=== PATIENT | male | born 1985 | race African-American/Black ===

== ENCOUNTER 2016-07-24 05:22 | Emergency (ER) | payer SELFPAY ==
[2016-07-24 05:24] VITALS: BP 138/71; PULSE 107; RESP 18; TEMP 102.2; O2SAT 97
[2016-07-24] MEDS ORDERED: SODIUM CHLOR 0.9% 1000 ML INJ 1,000 ML IV ONE ×2 (06:00→07:00)
[2016-07-24] MEDS ORDERED: IBUPROFEN 600 MG TAB PO ONE (06:00)
[2016-07-24 06:01] VITALS: BP 123/62; PULSE 98; RESP 16; TEMP 102.5; O2SAT 96
--- NOTE | 2016-07-24 06:08 | PD ---
HPI Chief Complaint: Fever Time Seen by Provider: 05:39 Travel History International Travel<30 days: No Contact w/Intl Traveler<30days: No Traveled to known affect area: No History of Present Illness HPI The patient is a 30 year old male who presents to the [facility] emergency department with a history of febrile illness that began on Friday. The patient reports that he has had body aches associated with this, worse in the left side of his low back, a cough productive of brown sputum, rhinorrhea that is clear to yellow in color, and a sore throat. The patient denies having any vomiting or diarrhea. He reports that he has been able to eat well. He reports that he has however had constipation. His last bowel movement was on Friday. The patient denies having any dysuria or urinary urgency, however he does have urinary frequency. He denies having any penile discharge or scrotal pain or swelling. The patient reports that he was concerned that his fever went up to a MAXIMUM TEMPERATURE of 103.7 and was not relieved with Tylenol. The patient denies any recent neck pain, chest pain, shortness of breath, abdominal pain, vomiting, diarrhea, or neurologic symptoms. [facility] Past Medical History Narrative Medical The patient's past medical history is reportedly none. Past Surgical History Narrative Surgical The patient's past surgical history is reportedly none. Social History Alcohol Use: Yes (rare use) Tobacco Use: No Substance Use: No Allergies-Medications (Allergen,Severity, Reaction): Coded Allergies: No Known Allergies (Unverified , 07/24/16) Reported Meds & Prescriptions Reported Meds & Active Scripts Active No Active Prescriptions or Reported Medications Narrative Medication NyQuil, Tylenol, ibuprofen Review of Systems Except as stated in HPI: all other systems reviewed are Neg General / Constitutional: Positive: Fever Eyes: No: Visual changes HENT: Positive: Sore Throat, Congestion, No: Headaches Cardiovascular: No: Chest Pain or Discomfort, Dyspnea on exertion Respiratory: Positive: Cough, No: Shortness of Breath Gastrointestinal: Positive: Constipation, Changes in Bowel Habits, No: Nausea , Vomiting, Diarrhea, Abdominal Pain, Indigestion, Loss of Appetite Genitourinary: Positive: Frequency, Flank Pain (left-sided), No: Urgency, Dysuria Musculoskeletal: No: Pain Skin: No Rash Neurologic: No: Weakness Psychiatric: No: Depression Endocrine: No: Polydipsia Hematologic/Lymphatic: No: Easy Bruising Physical Exam Narrative General: The patient is a well-developed well-nourished male in no acute distress. Head and Neck exam: Head is normocephalic atraumatic. Eyes: Pupils are equal round and reactive to light. Nose: Midline septum with erythematous edematous nasal mucosa and a clear nasal discharge. Mouth: Dentition unremarkable. Moist mucus membranes. Posterior oropharynx is mildly erythematous. No tonsillar hypertrophy. Uvula midline. Airway patent. Neck: No palpable lymphadenopathy. No nuchal rigidity. No thyromegaly. Cardiovascular: Sinus tachycardia in the low 100 without murmurs, gallops, or rubs. No pulse deficit to the extremities and simultaneous auscultation and palpation of his radial artery. Lungs: Clear to auscultation bilaterally. No wheezes, rhonchi, or rales. Abdomen: Soft, without tenderness to palpation in all 4 quadrants of the abdomen. No guarding, rebound, or rigidity. Normal bowel sounds are audible. Extremities: No clubbing, cyanosis, or edema. 2+ pulses in all 4 extremities. Back: No spinous process tenderness to palpation. Left-sided CVA tenderness on palpation. Neurologic Exam: Grossly nonfocal. Skin Exam: No rash noted. Intact skin that is warm and dry. Data Data Last Documented VS Vital Signs Date Time Temp Pulse Resp B/P Pulse Ox O2 Delivery O2 Flow Rate FiO2 07/24/16 06:01 102.5 98 16 123/62 96 Room Air Orders Complete Blood Count With Diff (07/24/16 05:58) Comprehensive Metabolic Panel (07/24/16 05:58) Blood Culture (07/24/16 05:58) C-Reactive Protein (Crp) (07/24/16 05:58) Urinalysis - C+S If Indicated (07/24/16 05:58) Magnesium (Mg) (07/24/16 05:58) Influenzae A/B Antigen (07/24/16 05:58) Chest, Single Ap (07/24/16 05:58) Iv Access Insert/Monitor (07/24/16 05:58) Ecg Monitoring (07/24/16 05:58) Oximetry (07/24/16 05:58) Lactic Acid (07/24/16 05:58) Sodium Chlor 0.9% 1000 Ml Inj (Ns 1000 M (07/24/16 06:00) Ibuprofen (Motrin) (07/24/16 06:00) Oseltamivir (Tamiflu) (07/24/16 06:45) Labs Laboratory Tests Test 07/24/16 07/24/16 06:15 06:30 White Blood Count 8.1 TH/MM3 Red Blood Count 4.16 MIL/MM3 Hemoglobin 13.5 GM/DL Hematocrit 40.4 % Mean Corpuscular Volume 97.1 FL Mean Corpuscular Hemoglobin 32.4 PG Mean Corpuscular Hemoglobin 33.4 % Concent Red Cell Distribution Width 11.9 % Platelet Count 183 TH/MM3 Mean Platelet Volume 8.9 FL Neutrophils (%) (Auto) 82.9 % Lymphocytes (%) (Auto) 6.9 % Monocytes (%) (Auto) 9.1 % Eosinophils (%) (Auto) 0.7 % Basophils (%) (Auto) 0.4 % Neutrophils # (Auto) 6.7 TH/MM3 Lymphocytes # (Auto) 0.6 TH/MM3 Monocytes # (Auto) 0.7 TH/MM3 Eosinophils # (Auto) 0.1 TH/MM3 Basophils # (Auto) 0.0 TH/MM3 CBC Comment DIFF FINAL Differential Comment Sodium Level 136 MEQ/L Potassium Level 3.9 MEQ/L Chloride Level 103 MEQ/L Carbon Dioxide Level 25.6 MEQ/L Anion Gap 7 MEQ/L Blood Urea Nitrogen 11 MG/DL Creatinine 1.44 MG/DL Estimat Glomerular Filtration 57 ML/MIN Rate Random Glucose 152 MG/DL Lactic Acid Level 1.3 mmol/L Calcium Level 8.1 MG/DL Magnesium Level 1.7 MG/DL Total Bilirubin 1.2 MG/DL Aspartate Amino Transf 20 U/L (AST/SGOT) Alanine Aminotransferase 27 U/L (ALT/SGPT) Alkaline Phosphatase 58 U/L C-Reactive Protein 4.22 MG/DL Total Protein 6.9 GM/DL Albumin 3.4 GM/DL Urine Color YELLOW Urine Turbidity CLEAR Urine pH 6.5 Urine Specific [place] 1.010 Urine Protein NEG mg/dL Urine Glucose (UA) NEG mg/dL Urine Ketones NEG mg/dL Urine Occult Blood NEG Urine Nitrite NEG Urine Bilirubin NEG Urine Urobilinogen LESS THAN 2.0 MG/DL Urine Leukocyte Esterase NEG Urine RBC 2 /hpf Urine WBC 1 /hpf Urine Mucus FEW /lpf Microscopic Urinalysis Comment CULT NOT INDICATED MDM Medical Decision Making Medical Screen Exam Complete: Yes Emergency Medical Condition: Yes Medical Record Reviewed: Yes Interpretation(s) Last Impressions Chest X-Ray 07/24/16 0558 Signed Impressions: Service Date/Time: Sunday, July 24, 2016 06:26 - CONCLUSION: No acute disease. Jay Jay Roca MD Differential Diagnosis Pyelonephritis, versus influenza, versus pneumonia, versus sepsis Narrative Course During the course of the patients emergency department visit, the patients history, examination, and differential diagnosis were reviewed with the patient. The patient had IV access obtained and blood work sent for analysis. The patient was placed on a deicer element winder machine with oximetry and blood pressure monitoring. The patient was provided normal saline 1 L IV fluid bolus, Motrin 600 mg by mouth 1. The patients laboratory studies were reviewed and remarkable for being influenza A+. CBC is remarkable for white count of 8.1, hemoglobin 13.5, platelets 183 with 82.9 neutrophils. CMP is remarkable for creatinine 1.44, glucose 152, calcium 8.1, lactic acid 1.3, total bilirubin 1.2, C-reactive protein 4.22, urinalysis is unremarkable. Radiology studies were reviewed and remarkable for a chest x-ray that shows no acute abnormality. Urinalysis is pending at the conclusion of my shift. I suspect that this will be negative and that the patient's symptoms are related to influenza. The patient was given Tamiflu of any 5 mg by mouth 1. The patient was instructed on alternating Tylenol with ibuprofen as needed as written on the package for fever and body aches. The patient is instructed regarding the importance of pushing fluids. The patient was given a second liter of normal saline IV fluids in the emergency department. The patient is instructed to follow-up with a primary care physician for reexamination in one week. The patient is resting comfortably and feels better, is alert and in no distress. The patients results and examination findings were discussed with the patient. The repeat examination is unremarkable and benign. The history, exam, diagnostic testing, and current condition do not suggest any significant pathology to warrant further testing, continued ED treatment, admission, or surgical evaluation at this point. The vital signs have been stable. The patient does not have uncontrollable pain, intractable vomiting, or other significant symptoms. The patient's condition is stable and appropriate for discharge. The patient will pursue further outpatient evaluation with a primary care physician or other designated or consulting physician as indicated in the discharge instructions. The patient expressed understanding and was agreeable with this plan. Sepsis Criteria SIRS Criteria (2 or more): Temp > 100.9 or < 96.8, Heart rate over 90 Criteria Outcome: Meets SIRS criteria Diagnosis Primary Impression: Febrile illness, acute Additional Impression: Influenza A Referrals: Primary Care Physician 1 week Patient Instructions: General Instructions, H1N1 Influenza (ED) Med/Other Pt SpecificInfo: Prescription(s) given Scripts Oseltamivir (Tamiflu)75 Mg Cap75 Mg PO BID #9 CAP Ref 0 Prov:Sheyla Vela MD 07/24/16 Disposition: 01 DISCHARGE HOME Condition: Stable Sheyla Vela MD Jul 24, 2016 06:07
[2016-07-24 06:31] LABS: AUTOMATED NEUTROPHIL # 6.7 TH/MM3 (1.8-7.7); BASOPHIL % 0.4 % (0.0-2.0); EOSINOPHIL # 0.1 TH/MM3 (0-0.4); EOSINOPHIL % 0.7 % (0.0-4.0); HEMATOCRIT 40.4 % (39.0-51.0); HEMO FLAGS DIFF FINAL; LYMPH % 6.9 % (9.0-44.0); LYMPHOCYTE # 0.6 TH/MM3 (1.0-4.8); MEAN CELL VOLUME 97.1 FL (80.0-100.0); MEAN CORPUSCULAR HEMOGLOBIN 32.4 PG (27.0-34.0); MEAN CORPUSCULAR HGB CONC 33.4 % (32.0-36.0); MONO % 9.1 % (0.0-8.0); NEUT % 82.9 % (16.0-70.0); PLATELET COUNT 183 TH/MM3 (150-450); RED BLOOD COUNT 4.16 MIL/MM3 (4.50-5.90); RED CELL DISTRIBUTION WIDTH 11.9 % (11.6-17.2); WHITE BLOOD COUNT 8.1 TH/MM3 (4.0-11.0)
--- NOTE | 2016-07-24 06:41 | RADRPT ---
EXAM DATE/TIME: 07/24/2016 06:26 [place] COMPARISON: No previous studies available for comparison. INDICATIONS : Short of breath. MEDICAL HISTORY : None. SURGICAL HISTORY : None. ENCOUNTER: Initial ACUITY: 1 day PAIN SCORE: 0/10 LOCATION: Bilateral chest FINDINGS: A single view of the chest demonstrates the lungs to be symmetrically aerated without evidence of mas s, infiltrate or effusion. The cardiomediastinal contours are unremarkable. Osseous structures are intact. CONCLUSION: No acute disease. Jay Jay Roca MD on July 24, 2016 at 6:39 Board Certified Radiologist. This report was verified electronically.
[2016-07-24] MEDS ORDERED: OSELTAMIVIR PHOSPHATE 75 MG CAP PO ONE (06:45)
[2016-07-24 06:49] LABS: BLOOD, URINE NEG (NEG); GLUCOSE,URINE NEG (NEG); KETONE, URINE NEG (NEG); MUCUS URINE FEW /lpf (OCC); NITRITE,URINE NEG (NEG); PH, URINE 6.5 (5.0-8.5); URINE COLOR YELLOW (YELLW/STRAW)
[2016-07-24 06:49] LABS: ALT (GPT) 27 U/L (12-78); ANION GAP 7 MEQ/L (5-15); AST (GOT) 20 U/L (15-37); BICARBONATE 25.6 MEQ/L (21.0-32.0); BLOOD UREA NITROGEN 11 MG/DL (7-18); CHLORIDE 103 MEQ/L (98-107); GLOMERULAR FILTRATION RATE 57 ML/MIN (>89); MAGNESIUM 1.7 MG/DL (1.5-2.5); POTASSIUM 3.9 MEQ/L (3.5-5.1); SODIUM (NA) 136 MEQ/L (136-145)
[2016-07-24 06:51] LABS: ALKALINE PHOSPHATASE 58 U/L (45-117); TOTAL BILIRUBIN ADULT 1.2 MG/DL (0.2-1.0)
[2016-07-24 06:52] LABS: COMMENT (UR) CULT NOT INDICATED; CULTURE IF INDICATED CULT NOT INDICATED
[2016-07-24] MEDS ORDERED: OSEL75 PO ×2 (06:56→07:11)
[2016-07-24 07:12] VITALS: TEMP 100
== END 2016-07-24 09:14 | disposition home or self-care (01) ==
LOC: NEPE 05:22
DX: J09.X2 Influenza due to identified novel influenza A virus with other respiratory manifestations (principal); R50.9 Fever, unspecified; R52 Pain, unspecified; R05 Cough; J34.89 Other specified disorders of nose and nasal sinuses; K59.00 Constipation, unspecified
CPT/HCPCS: 71010; 80053; 81001; 83605; 83735; 85025; 86140; 87040; 87804; 96360; 96361; 99283; J7030